=== PATIENT | female | born 1985 | race Caucasian/White ===

== ENCOUNTER 2021-12-23 16:10 | Outpatient (CLI) | payer OTHER, SELFPAY ==
--- NOTE | ~2021-12-23 | US_ITS ---
EXAMINATION: US OB <=14 wk fetus w TV INDICATION: O20.0 - Threatened TECHNIQUE: Sonography of the pelvis was performed by transabdominal and transvaginal techniques. COMPARISON: None. RESULT: Uterus: - Myometrium: Homogeneous echogenicity. Uterine size not directly measured. Gestation: - Intrauterine gestational sac: Present in the lower uterine segment. - Mean Sac Diameter: cm, corresponding gestational age week days - Yolk sac: cm - Embryo: - [place] rump length: 1.6 cm, corresponding gestational age 8 weeks, 0 days -Gestational heart rate: Absent. bpm -Subgestational hematoma: Absent Right ovary: -Not visualized Left ovary: - Size: 2.9 x 1.9 x 2.0 cm - Normal sonographic appearance with physiologic follicles. Pelvis free fluid: None. IMPRESSION: Single intrauterine gestational sac in the lower uterine segment, without heart motion. Estima александр Gestational Age: 8 weeks, 0 days by crown rump length. Likely demise. At approximately 5:35 PM, I telephoned the referring physician's office which was closed. [facility] contact with the answering service. Results were then communicated by Dr. Jarvis to Dr. Nimisha Baker at 6:30 PM on 12/23/2021. Reviewed, dictated and finalized at location K. IMPRESSION: Single intrauterine gestational sac in the lower uterine segment, without heart motion. Estimated Gestational Age: 8 weeks, 0 days by crown rump lengt h. Likely demise. At approximately 5:35 PM, I telephoned the referring physician's office which w as closed. Radiology front desk person staff made contact with the answering service. Results were then communicated by Dr. Jarvis to Dr. Nimisha Baker at 6:30 PM on 12/23/2021.
== END 2021-12-23 16:11 | disposition home or self-care (01) ==
PROVIDERS: Visit Provider Obstetrics & Gynecology
DX: O20.0 Threatened abortion (principal); Z3A.08 8 weeks gestation of pregnancy
CPT/HCPCS: 76801; 76817

== ENCOUNTER 2021-12-25 01:11 | Day surgery (SDC) | payer OTHER, SELFPAY ==
--- NOTE | 2021-12-24 08:51 | PM.IMHP ---
H&P: HPI History of Present Illness Date/Time: 12/24/21 08:51 33-year-old 5 para 4 0 now 14 female presents for suction curettage. She was seen earlier in the at approximately 6-7 weeks with bleeding and ultrasound that showed point revealed gestational sac pole but no definitive cardiac activity. Repeat ultrasound yesterday revealed no cardiac activity and no significant growth. Chief Complaint: missed first-trimester PMF Surgical History Surgical History Delivery by section (04/09/08) Delivery by section (11/28/11) Delivery by section (12/20/13) Delivery by section (07/17/15) History of appendectomy Social History Social History Smoking status: Never smoker Tobacco type: e-cigarettes/vaping Alcohol intake: never Substance use: current Substance use type: marijuana Other substance usage details: ocassional Additional living arrangements comments: single Additional occupation/education comments: retail Gender identity (if verbalized by the patient): Female Sexual Orientation (if Verbalized by the Patient): Straight or Heterosexual Meds Home Medications and Allergies Home Medications Medication Instructions Recorded Confirmed Type vitamins-iron fumarate 65 1 tablet PO DAILY 12/23/21 12/23/21 History mg iron-folic acid 1 mg tablet Allergies Allergy/AdvReac Type Severity Reaction Status Date / Time No Known Allergies Allergy Unverified 12/24/21 08:54 Exam Const: General: cooperative, healthy appearing and comfortable Resp: Effort & Inspection: normal respiratory effort Auscultation: clear to auscultation bilaterally Cardio: Rate: regular rate Rhythm: regular rhythm GI: Inspection: normal to inspection and incision Auscultation: normal bowel sounds : External Female Exam: normal external appearance Speculum Exam - Vagina: normal appearance of the vagina Speculum Exam - Cervix: normal appearance of the cervix Bimanual exam- vagina & uterus: enlarged ( 8-10 week size) Bimanual Exam- Adnexa, other: normal adnexae Assessment and Plan Assessment and plan (1) Missed with demise before 20 completed weeks of gestation: Code(s): O02.1 - Missed Status: Acute Assessment and Plan: 1st trimester missed will be treated with suction curettage.
[2021-12-24 08:55] VITALS: BMI 42.4
--- NOTE | 2021-12-24 09:04 | PC.NURSE ---
Report to the Outpatient Waiting Room, entrance under the green pavilion located off [facility], at time 1100 on date 12/25/21. OR Time: 1300. - You and your visitor will be asked a series of questions to screen for COVID 19 for your protection. - Only one visitor is allowed at this time. - The patient visitor is requested to leave or wait in car when not with patient. - A mask is required within the hospital. Patients may have clear liquids (water, carbonated beverages, clear teas, apple juice) until 3 hours prior to surgery with a maximum of 20 ounces. - No food from midnight until time of surgery Take the following medications with a SIP of water the morning of surgery: NONE Medications to discontinue per physician: VITAMINS Date to take last dose: NO MORE UNTIL AFTER SURGERY Please no make-up, nail indonesian, hairspray, perfume, deodorant, or body powder the day of surgery. No jewelry (including any body piercings) or valuables the day of surgery, leave them at home. Please take a shower or bath the night before, or the morning of, surgery with an antibacterial soap. Wear comfortable, loose fitting clothing. - Jewelry must be removed prior to entering the operating room. Rings and piercings that are not removed may be cut off. - The hospital will not accept responsibility for valuables. - Please leave all valuables, including medications, at home the day of surgery. If you are going home after surgery, a licensed company truck driver must drive you home. - NO public transportation without another adult. - We recommend that an adult stay with you for 24 hours following discharge. - We also recommend that you do not drive, make important decision, drink alcoholic beverages, or take any drugs that were not prescribed by your health care provider for at least 24 hours after your discharge time. Follow any additional instructions given to you from your surgeon. If you or anyone in your household have experienced Covid symptoms in the past week, please notify your surgeon or the nurse liaison at the phone number below for possible testing. Telephone instructions given to PT - DAE KEENAN and asked if any additional questions and then verbalized understanding. Patient advised to call surgeon office or pre surgery nurse liaison [phone] if any additional questions.
--- NOTE | 2021-12-24 15:06 | WPDANESEPPF ---
Anes - Initial Pre Proc Eval Procedure: Operation Date: 12/25/21 13:00 Proposed Procedures p Suction Dilation and Curettage - Kevin Salas MD Date/Time: 12/24/21 15:06 Surgeon: Kevin Salas MD Pre Op Diagnosis: Missed Ab Patient Data Age: 36 Gender: F Height: 1.5 m Weight: 95.25 kg Allergies Allergy/AdvReac Type Severity Reaction Status Date / Time No Known Allergies Allergy Unverified 12/25/21 11:29 Home Medications Medication Instructions Recorded Confirmed Type vitamins-iron fumarate 65 1 tablet PO DAILY 12/23/21 12/25/21 History mg iron-folic acid 1 mg tablet Patient hx anesthesia problems: none Family hx anesthesia problems: none Results Review: All pre-operative results and documents have been reviewed as part of the pre-operative evaluation. [facility] Past Medical History Medical History (Updated 12/24/21 @ 15:08 by Julien Mclaughlin MD) Anxiety Morbid obesity with BMI of 40.0-44.9, adult Surgical History Surgical History Delivery by section (04/09/08) Delivery by section (11/28/11) Delivery by section (12/20/13) Delivery by section (07/17/15) History of appendectomy Social History Social History Smoking status: Never smoker Tobacco type: e-cigarettes/vaping Alcohol intake: current Drinks per week: 4 Substance use: current Substance use type: marijuana Other substance usage details: ocassional Living arrangements: with family Additional living arrangements comments: BOYFRIEND AND CHILDREN Additional occupation/education comments: retail Gender identity (if verbalized by the patient): Female Sexual Orientation (if Verbalized by the Patient): Straight or Heterosexual Spiritual care concerns: No Anes - Eval Final PreProcedure Day of Procedure 12/24/21 15:06 Patient weight: morbidly obese Heart: regular rate and rhythm Lungs: clear to auscultation and normal air movement Airway: Mallampati scale class II Neurological: alert and oriented Last oral intake: >/= 8 hours ASA classification: III Emergent: no Anesthetic plan: proceed Anesthesia type and monitoring: general GIVS and LMA Results Review: All pre-operative results and documents have been reviewed as part of the pre-operative evaluation. Informed Consent: The patient's anesthetic plan and its attendant risks and benefits were discussed with the patient/family/POA. Questions were solicited and answers provided to the satisfaction of the patient/family/POA.
[2021-12-25] VITALS (8 sets, daily range): BP systolic 123–150; BP diastolic 68–95; PULSE 52–81; RESP 16–17; TEMP 36.9; O2SAT 96–99
--- NOTE | 2021-12-25 11:15 | WPDHPUPDATE1 ---
History and Physical Update Update Date/Time: 12/25/21 11:15 History and Physical has been reviewed, including an updated exam of the patient. There are NO changes in the patient's condition. Risks, benefits, and alternatives have been discussed and questions answered. Patient agrees to proceed with procedure.
[2021-12-25] MEDS: ACETAMINOPHEN 500 MG TABLET 1000 MG PO (11:31)
--- NOTE | 2021-12-25 11:36 | SUR.PREOP ---
BECAUSE WE CARE BOOKLET GIVEN TO PT WITH INFORMATIONAL MATERIALS.
[2021-12-25] MEDS: LACTATED RINGERS 1,000 ML 30 ML IV CONT (11:52)
--- NOTE | 2021-12-25 13:49 | W.PM.PROC2 ---
Procedure Note - Detailed Date of Procedure 12/25/21 Pre-op Diagnosis First trimester missed Post-op Diagnosis Same Procedure Performed cervical dilation suction curettage ( Suction curettage ) Surgeon Kevin Salas MD Anesthesia MAC Findings moderate amount of products conception Description of Procedure patient prepped usual manner for this procedure. Cervix dilated to allow a 9mm suction curette be placed which was then used to remove the intrauterine contents. Sharp curette then placed throughout the entire the cavity with no remaining tissue noted. Moderate amount of bleeding continued therefore smaller curette was placed with again no further tissue noted and small amount of blood removed. At this point the bleeding had subsided to the expected small amount and the procedure was completed. Patient was then sent to recovery room in stable condition. Estimated Blood Loss 500 Drains No Packing No Complications No immediate complications Condition Stable Disposition PACU [facility] Billing Surgery - Charge Forward: Surgery Billing
[2021-12-25] MEDS: oxyCODONE HCL (*CRX) 5 MG TAB IR PO (14:26)
[2021-12-25] MEDS: ONDANSETRON INJ 4 MG/2 ML VIAL IV PUSH (14:52)
[2021-12-25] MEDS: diphenhydrAMINE HCl INJ 50 MG/ML VIAL 25 MG IV PUSH (15:18)
[2021-12-25] MEDS: HALOPERIDOL LACTATE 5 MG/ML VIAL 1 MG IV PUSH (15:19)
[2021-12-25] MEDS: SCOPOLAMINE 1.5 MG PATCH TRANSDERM (15:19)
[2021-12-25] MEDS: KETOROLAC 30 MG/ML VIAL (*BKC) IV PUSH (16:12)
--- NOTE | 2021-12-25 18:41 | SUR.PHASEII ---
Patient had post-op N/V pretty bad. There was no pre-treatment given.
== END 2021-12-25 17:26 | disposition home or self-care (01) ==
PROVIDERS: Visit Provider Obstetrics & Gynecology
PROC: (CPT 59820; principal; 2021-12-25 13:00)
DX: O02.1 Missed abortion (principal); F17.290 Nicotine dependence, other tobacco product, uncomplicated; F12.90 Cannabis use, unspecified, uncomplicated; E66.01 Morbid (severe) obesity due to excess calories; Z3A.00 Weeks of gestation of pregnancy not specified
CPT/HCPCS: 59820; 36415; 85461; 88305; A9270; J1200; J1630; J1885; J2250; J2405; J2704; J3010; J7120